=== PATIENT | male | born 2000 | race Two or more races ===

== ENCOUNTER 2020-02-16 06:33 | Emergency (ER) | payer OTHER ==
[~2020-02-16] VITALS: Ht 188 cm; Wt 72.6 kg
[2020-02-16] MEDS ORDERED: SODIUM CHLORIDE 0.9% 1,000 ML IV ONE ×2 (07:15)
[2020-02-16] MEDS ORDERED: IOHEXOL 300 MG/ML 100ML BOTTLE IJ ONE (07:33)
[2020-02-16] MEDS ORDERED: TETANUS-DIPTH-ACEL PERTUSSIS 0.5ML SYR Tdap IM ONE (08:00)
[2020-02-16] MEDS ORDERED: cefTRIAXone 1GM/50ML D5W 50 ML IV ONE (08:00)
[2020-02-16] MEDS ORDERED: MORPHINE SULFATE 4 MG/ML SYR/VIAL IV ONE (08:15)
[2020-02-16] MEDS ORDERED: ONDANSETRON HCL 4 MG/2 ML VIAL IV ONE (08:15)
[2020-02-16] MEDS ORDERED: cefTRIAXone SOD 1,000 MG VL ONE (08:20)
[2020-02-16] MEDS ORDERED: LIDOCAINE 1% HCL (LOCAL ANESTH.) INJ 20ML MDV ONE (11:36)
[2020-02-16] MEDS ORDERED: LIDOCAINE 1% HCL (LOCAL ANESTH.) INJ 20ML MDV IJ ONE (11:45)
[2020-02-16 12:14] VITALS: BP 128/65
== END 2020-02-16 11:26 | disposition home or self-care (01) ==
LOC: ER 06:33
DX: S81.011A Laceration without foreign body, right knee, initial encounter (principal); V49.49XA Driver injured in collision with other motor vehicles in traffic accident, initial encounter; Y93.89 Activity, other specified; Y92.488 Other paved roadways as the place of occurrence of the external cause; Y99.8 Other external cause status
CPT/HCPCS: 29505; 70450; 71045; 73700; 74177; 90471; 90715; 96361; 96365; 96375; 99285; J0696; J2001; J2270; J2405; Q9967